=== PATIENT | male | born 1950 | race Caucasian/White ===

== ENCOUNTER 2020-08-25 08:23 | Day surgery (SDC) | payer MEDICARE ==
[2020-08-25] MEDS ORDERED: Propofol 200 MG/20 ML SDV ONE (09:21)
[2020-08-25] MEDS ORDERED: Midazolam 1 MG/ML 2 ML SDV ONE (09:21)
[2020-08-25] MEDS ORDERED: fentaNYL 100 MCG/2 ML SDV ONE (09:21)
[2020-08-25] MEDS ORDERED: Sodium Chloride 0.9% 1,000 ML IV SCH (09:45)
[2020-08-25] MEDS ORDERED: Scopolamine 1.5 MG Transdermal Patch TRDERM PRN (11:43)
--- NOTE | 2020-08-27 09:34 | OR ---
DATE OF PROCEDURE: 08/25/2020 SURGEON: Junior Espinosa MD PROCEDURE: Esophagogastroduodenoscopy. FINDINGS: 1. Polypoid-like lesion in the duodenal bulb, biopsied multiple times using cold biopsy forceps. 2. Inflammation at the GE junction with a salmon-like tongue protrusion approximately 1.5 cm noted (biopsied using cold biopsy forceps in conjunction with all 4 quadrants). COMPLICATIONS: None. FLUX PLANT OPERATOR: None. ANESTHESIA: MAC. PREOPERATIVE DIAGNOSES: 1. Nausea and vomiting. 2. Epigastric pain. POSTOPERATIVE DIAGNOSES: 1. Nausea and vomiting. 2. Epigastric pain. RISKS: Risks, benefits, alternatives, and limitations including but not limited to infection, bleeding, and injury to abdominal structures were explained to the patient, and they wished to proceed. PROCEDURE IN DETAIL: The patient was placed in left lateral decubitus position. EGD scope was introduced and advanced atraumatically to the second part of the duodenum. Within the duodenal bulb proper and the first part of the duodenum, the patient had a polypoid-type lesion similar to small pea-like/grape-like structures. This was biopsied multiple times using cold biopsy forceps. The scope was brought back into the stomach. No evidence of gastritis or ulceration. At the GE junction, there was mild inflammation consistent with reflux disease. This was a small tongue-like protrusion, was biopsied multiple times using cold biopsy forceps. The air was removed from the stomach. The esophagus inspected without abnormality. The patient tolerated the procedure well. Junior Espinosa MD /[id number]
== END 2020-08-25 12:30 | disposition home or self-care (01) ==
LOC: JP.SDS 08:23
PROVIDERS: ATTEND Surgery
DX: K20.90 Esophagitis, unspecified without bleeding (principal); R11.2 Nausea with vomiting, unspecified; I10 Essential (primary) hypertension
CPT/HCPCS: 43239; A9270; J2250; J2704; J3010; J7030; 74177; 74177-26; 88305; Q9967

== ENCOUNTER 2020-08-29 10:09 | Emergency (ER) | payer MEDICARE ==
[2020-08-29] MEDS ORDERED: Ondansetron 4 MG Tab.DIS PO ONE (11:51)
--- NOTE | 2020-08-29 12:25 | EDM.PDOC ---
ED HPI GENERAL MEDICAL PROBLEM - General Chief Complaint: Gastrointestinal Problem Stated Complaint: DEHYDRATION/DR REFFERED Time Seen by Provider: 08/29/20 11:30 Source of Information: Reports: Patient History Limitations: Reports: No Limitations - History of Present Illness INITIAL COMMENTS - FREE TEXT/NARRATIVE: This is a 69-year-old male who presents with concerns of nausea. He reports that his symptoms started approximately 1 month ago on a [place] when he had "a burrito from [facility]". He is in the midst of a work-up through his PCP, recently had EGD performed that was reportedly reassuring but pathology is pending. He is also had a CT scan performed to the last few days that showed some gastritis as well as colitis. Today he is in the ED because he feels like his nausea is getting to the point where he may become dehydrated. He is hoping that his biopsy results, which will not be available for a few days, will reveal a cause for his symptoms. He has been taking his Zofran only intermittently. He reports he overall has given up on this medicine as he feels like it does not work. He also has been trying his sucralfate. He denies any abdominal pain. No fevers. No diarrhea. Perhaps some intermittent flecks of blood in his vomit but no gross bleeding. - Related Data Allergies Allergy/AdvReac Type Severity Reaction Status Date / Time No Known Allergies Allergy Verified 08/25/20 09:10 Home Meds: Home Meds Hydrochlorothiazide/Lisinopril [Lisinopril/HCTZ 20-12.5 MG] 12.5 - 20 mg PO DAILY 08/24/20 [History] Omeprazole 40 mg PO DAILY 08/24/20 [History] Ondansetron [Zofran ODT] 4 mg PO Q8HR PRN 08/24/20 [History] Sucralfate 1 gm PO QID 08/29/20 [History] Past Medical History HEENT History: Reports: Impaired Vision Cardiovascular History: Reports: Hypertension Respiratory History: Reports: None Gastrointestinal History: Reports: Other (See Below) Other Gastrointestinal History: nausea/vomiting Genitourinary History: Reports: None Musculoskeletal History: Reports: None Neurological History: Reports: None Psychiatric History: Reports: None Endocrine/Metabolic History: Reports: None Hematologic History: Reports: None Immunologic History: Reports: None Oncologic (Cancer) History: Reports: None Dermatologic History: Reports: None - Infectious Disease History Infectious Disease History: Reports: None - Past Surgical History Head Surgeries/Procedures: Reports: None HEENT Surgical History: Reports: None Cardiovascular Surgical History: Reports: None Respiratory Surgical History: Reports: None GI Surgical History: Reports: None Male Surgical History: Reports: None Neurological Surgical History: Reports: None Musculoskeletal Surgical History: Reports: None Oncologic Surgical History: Reports: None Dermatological Surgical History: Reports: None Social & Family History - Tobacco Use Tobacco Use Status *Q: Never Tobacco User - Caffeine Use Caffeine Use: Reports: Coffee, Soda - Recreational Drug Use Recreational Drug Use: No ED ROS GENERAL - Review of Systems Review Of Systems: See Below Constitutional: Reports: No Symptoms HEENT: Reports: No Symptoms Respiratory: Reports: No Symptoms Cardiovascular: Reports: No Symptoms Endocrine: Reports: No Symptoms GI/Abdominal: Reports: Nausea : Reports: No Symptoms Musculoskeletal: Reports: No Symptoms Skin: Reports: No Symptoms Neurological: Reports: No Symptoms Psychiatric: Reports: No Symptoms Hematologic/Lymphatic: Reports: No Symptoms Immunologic: Reports: No Symptoms ED EXAM, GI/ABD - Physical Exam Exam: See Below Exam Limited By: No Limitations General Appearance: Alert, No Apparent Distress Ears: Normal External Exam Nose: Normal Inspection Throat/Mouth: Normal Inspection Head: Atraumatic, Normocephalic Neck: Normal Inspection Respiratory/Chest: Lungs Clear Cardiovascular: Regular Rate, Rhythm GI/Abdominal Exam: Soft, Non-Tender, No Distention Back Exam: Normal Inspection Extremities: Normal Inspection Neurological: Alert, Oriented Psychiatric: Normal Affect, Normal Mood Skin Exam: Warm, Dry Course - Vital Signs Last Recorded V/S: Last Vital Signs Temp 36.4 C 08/29/20 10:31 Pulse 57 L 08/29/20 10:31 Resp 16 08/29/20 10:31 BP 119/76 08/29/20 10:31 Pulse Ox 100 08/29/20 10:31 - Orders/Labs/Meds Meds: Medications Discontinued Medications Generic Name Dose Route Start Last Admin Trade Name Freq PRN Reason Stop Dose Admin Droperidol 1.25 mg 08/29/20 11:50 08/29/20 11:57 Droperidol 5 Mg/2 Ml Sdv IM 08/29/20 12:19 1.25 mg ONETIME ONE Administration Ondansetron HCl 4 mg 08/29/20 11:51 08/29/20 11:57 Ondansetron 4 Mg Tab.Dis PO 08/29/20 11:52 4 mg ONETIME ONE Administration - Re-Assessments/Exams Free Text/Narrative Re-Assessment/Exam: 69-year-old presents with concerns of nausea. This is been ongoing issue for him for the past month. Recently had a CT scan as well as EEG performed as he is undergoing a diagnostic work-up through his primary doctor. Today he is concerned that perhaps he may become dehydrated due to his ongoing symptoms. His exam is reassuring. He has normal vital signs. My concern for new acute pathology that we need to investigate in the ED today is low. We are going to treat him symptomatically, he is given a dose of IM droperidol as well as Zofran. He is tolerating p.o. He has not been taking his Zofran very regularly. We discussed increasing the dose to 1-2 tabs every 4 hours as needed, encouraged him to give this medicine another try as it is frequently well-tolerated. He is going to follow-up with his primary doctor, he was provided with return precautions. 08/29/20 18:49 Departure - Departure Time of Disposition: 14:00 Disposition: Home, Self-Care 01 Clinical Impression: Nausea - Discharge Information *PRESCRIPTION DRUG MONITORING PROGRAM REVIEWED*: No *COPY OF PRESCRIPTION DRUG MONITORING REPORT IN PATIENT KESHAV: No Instructions: Nausea, Adult Referrals: Vincent Melissa MD [Primary Care Provider] - Forms: ED Department Discharge Additional Instructions: As discussed, please increase the frequency and dosage of your ondansetron. You can take 1-2 tabs of this medicine every 4 hours. Continue on the sucralfate and the omeprazole as you are taking. Please follow-up with your primary doctor regarding your nausea to coordinate the remainder of your work-up. If you develop fevers, abdominal pain, or are truly unable to keep any fluids down please to return to the emergency room so we can reevaluate you. Thank you for trusting us to care for you today. Sepsis Event Note (ED) - Evaluation Sepsis Screening Result: No Definite Risk - Focused Exam Vital Signs: Vital Signs Temp Pulse Resp BP Pulse Ox 08/29/20 10:31 36.4 C 57 L 16 119/76 100 08/29/20 10:30 36.4 C 57 L 16 119/76 100
== END 2020-08-29 12:45 | disposition home or self-care (01) ==
LOC: JP.ED 10:09
DX: R11.0 Nausea (principal)
CPT/HCPCS: 96372; 99283; A9270; J1790

== ENCOUNTER 2020-10-03 06:31 | Day surgery (SDC) | payer MEDICARE, OTHER ==
[2020-10-03] MEDS ORDERED: Midazolam 1 MG/ML 2 ML SDV ONE (07:22)
[2020-10-03] MEDS ORDERED: Propofol 200 MG/20 ML SDV ONE (07:22)
[2020-10-03] MEDS ORDERED: fentaNYL 100 MCG/2 ML SDV ONE (07:22)
[2020-10-03] MEDS ORDERED: Sodium Chloride 0.9% 1,000 ML IV SCH (08:30)
--- NOTE | 2020-10-03 13:50 | OR ---
DATE OF PROCEDURE: 10/03/2020 SURGEON: Junior Espinosa MD PROCEDURE: Colonoscopy. FINDINGS: 1. Ascending colon polyp, approximately 5 mm, completely removed using hot snare wire device. 2. Descending colon polyp, approximately 3 mm, completely removed using cold biopsy forceps. COMPLICATIONS: None. JEWEL BEARING POLISHER: None. ANESTHESIA: MAC. PREOPERATIVE DIAGNOSIS: Screening colonoscopy. POSTOPERATIVE DIAGNOSIS: Screening colonoscopy. RISKS: Risks, benefits, alternatives, and limitations including but not limited to infection, bleeding, perforation, and false positives and false negatives were explained to the patient who wished to proceed. PROCEDURE IN DETAIL: The patient was placed in left lateral decubitus position. Digital rectal exam was performed without abnormality. Scope was introduced and advanced atraumatically to the ileocecal valve. A photo was taken of the appendiceal orifice. The scope was brought back to the ascending, transverse, and descending colon and retroflexed. The aforementioned polyps were identified and completely removed as described above. No other abnormalities. No old or new blood. No colitis. The prep was marginal, approximately 85% of luminal surface could be seen with retained solid and liquid stool. Greater than 8 minutes was spent removing the scope. No abnormalities on retroflexion. The patient tolerated the procedure well. Junior Espinosa MD /[id number]
== END 2020-10-03 10:35 | disposition home or self-care (01) ==
LOC: JP.SDS 06:31
PROVIDERS: ATTEND Surgery
DX: Z12.11 Encounter for screening for malignant neoplasm of colon (principal); D12.2 Benign neoplasm of ascending colon; D12.3 Benign neoplasm of transverse colon; I10 Essential (primary) hypertension
CPT/HCPCS: 45380; 45385; J2250; J2704; J3010; J7030